=== PATIENT | male | born 1990 | race Caucasian/White ===

== ENCOUNTER 2017-06-28 14:52 | Emergency (ER) | payer BC, OTHER ==
[~2017-06-28] VITALS: Ht 177.8 cm; Wt 105.3 kg
[~2017-06-28 14:52] MED LIST: ATARAX,VISTARIL25 MG PO; BACTRIM,SEPT1 TABLET PO; CITALOPRAM HBR20 MG PO; CYCLOBENZAPRINE5 MG PO; ENDOCET 5-3251 EACH PO; FLEXERIL10 MG PO; HYDROCORTISONE28 GM TP; LORAZEPAM1 MG PO; MELOXICAM15 MG PO; NAPROSYN500 MG PO; NUCYNTA ER100 MG PO; PERCOCET 5/31 TABLET PO; PREDNISONE10 MG PO; TIZANIDINE; VICODIN 5-3001 EACH PO; VICODIN,LORT1 TABLET PO
[2017-06-28 16:46] LABS: POINT-OF-CARE METER ID UU13113800
[2017-06-28 16:47] LABS: HEMATOCRIT 46.1 % (38.0-50.0); MCHC 33.6 G/DL (30.0-36.0); MCV 86.3 FL (86-99); MEAN PLAT.VOLUME 10.2 uM^3 (9.0-12.4); PLATELET COUNT 245 K/uL (156-360); RBC DIS.WIDTH-SD 40.5 % (39-53); RED BLOOD COUNT 5.34 M/uL (4.00-5.50); WHITE BLOOD COUNT 5.3 K/uL (4.1-10.2)
[2017-06-28 16:57] LABS: CHLORIDE 102 mEq/L (99-109); POTASSIUM 4.4 mEq/L (3.7-5.4); SODIUM 140 mEq/L (136-147)
[2017-06-28 16:59] LABS: GLUCOSE 96 mg/dL (70-99)
[2017-06-28 17:01] LABS: ANION GAP 12 MEQ/L (2-14)
[2017-06-28 17:03] LABS: GFR ESTIMATE (CALCULATED) > 59 mL/min/
[2017-06-28 17:04] LABS: UREA NITROGEN (BUN) 15 mg/dL (9-23)
[2017-06-28] MEDS ORDERED: ANTIVERT12.5 MG PO (17:32)
[2017-06-28] MEDS ORDERED: ZOFRAN ODT4 MG PO (17:32)
[2017-06-28 17:49] VITALS: BP 130/90
== END 2017-06-28 18:00 | disposition home or self-care (01) ==
LOC: EME 14:52
PROVIDERS: Nurse Practitioner Family
DX: R42 Dizziness and giddiness (principal); E16.2 Hypoglycemia, unspecified; R51 Headache
CPT/HCPCS: 80048; 82948; 85027; 99281; 99284